=== PATIENT | male | born 1985 | race Asian ===

== ENCOUNTER 2025-01-20 04:49 | Emergency (ER) | payer MEDICAID, SELFPAY ==
--- NOTE | 2025-01-20 04:54 | EDNOTE_ITS ---
ED Medical Clearance RME/HPI General Stated complaint: MEDICAL CLEARANCE Time Seen by Provider: 01/20/25 05:06 Arrival date/time: 01/20/25 04:49 RME / HPI RME / HPI Narrative: Dr. Izaguirre?s Main ED Evaluation: 39yo male BIB [facility] presents to the ED for a medical clearance. Per [facility], patient was brought in due to his HR being too high. Patient denies any headache, chest pain, shortness of breath, dizziness, lightheadedness, N/V or any other associated symptoms. Patient is not on any medications. Denies any tobacco, alcohol or illicit drug use. NKA. Related Information Allergies Allergy/AdvReac Type Severity Reaction Status Date / Time No Known Allergies Allergy Mild Uncoded 08/05/09 20:49 Review of Systems Review of Systems Systems Reviewed: All systems reviewed, normal except as documented Past Medical History Social History SMOKING STATUS: Current some day smoker ED Exam Narrative Physical exam: GEN. APPEARANCE: The patient is alert awake oriented X-3 in no distress, lying down comfortably, does not look ill/toxic. Patient has good eye contact. Patient is cooperative. VITALS: All vitals were reviewed and the pulse ox is 99% on room air which is normal according to my interpretation. HEENT: Normocephalic, atraumatic. Pupils are equal and reactive. Oral mucosa is moist. Patent Nares NECK: Supple, nontender, no thyromegaly, no meningismus, no JVD CHEST: Symmetrical, atraumatic, and with equal expansion , Nontender on palpation no deformity and no crepitus. CARDIOVASCULAR: Tachycardic; no murmur or gallop rub or extra beats. LUNGS: Clear to auscultation bilaterally with symmetrical chest rise. No laboring tachypnea or wheezing. No intercostal subcostal retraction. No rales and no rhonchi. ABDOMEN: Soft, flat, nontender to palpation, no guarding or rebound tenderness. There are no abnormal masses palpated. Active and normal bowel sounds. EXTREMITIES: Nontender. No edema. No cyanosis. Patient is handcuffed. SKIN: Warm and dry, no jaundice or rashes noted. NEURO: Patient is PERES x 4, Cranial nerves II through XII grossly intact. There is no focal neurologic deficits noted. GCS is 15, PNS and [employer] appear grossly intact. PSYCHIATRIC: Patient is in anxious mood and affect Course Quality Measures none Orders Category Date Time Status EKG (ED ONLY) *Do not use* NOW Care 01/20/25 05:06 Active EKG (ED Only) Stat Exams 01/20/25 05:06 Ordered Ringers Lactated 1000 ml [Lactated Ringers] 1,000 ml Med 01/20/25 05:06 Active IV 999 mls/hr Vital Signs Vital signs: Vital Signs Temperature 98.6 F 01/20/25 04:59 Pulse Rate 134 H 01/20/25 04:59 Respiratory Rate 18 01/20/25 04:59 Blood Pressure 151/112 H 01/20/25 04:59 Pulse Oximetry (%) 99 01/20/25 04:59 Oxygen Delivery Method Room Air 01/20/25 04:59 Medical Clearance MDM Narrative MDM Narrative:: Scribe Attestation: 01/20/25 - Idania Adkins am scribing for and in the presence of Dr. Izaguirre. Patient was offered IVF and EKG, but patient declined. Patient is refusing to receive any treatment and is signing out AMA. Patient data External records reviewed:: [facility] previous records (Per chart review, patient has no previous ED visits or admissions to this facility.) Clinical information provided by:: patient and law enforcement Social determinants that could affect healthcare access:: none Patient has the following chronic illnesses:: none How is presenting disease/condition affected by chronic disease/condition?: no chronic disease Evaluation data The following diagnostics were reviewed and interpreted by me:: other (specify) (none) Lab and/or radiology exams considered but not ordered:: none Interpretation Summary: none Medications / Prescriptions Medications or Prescriptions considered but not ordered:: none Medication administrations:: Medication Administration History Lactated Ringer's (Lactated Ringers) 1,000 mls @ 999 mls/hr IV .[id number] ONE Stop: 01/20/25 06:06 Patient refused. Consultations Consultation(s) initiated? (list below): No Diagnosis Medical Clearance Differential Diagnosis: other (ACS, dehydration, arrhythmia, anxiety, acute stress reaction) Most likely diagnosis given after review of the tests above:: AMA Admission Indicated Admission indicated?: not indicated Admission Request Was there a request for admission?: No Disposition Plan Disposition Plan: other (specify) (Patient signed out AMA.) Discharge Plan Plan Patient Disposition: Left Against Medical Advice Discharge Disposition comment: Patient is currently in custody, is tachycardic. Patient has capacity to make his own decisions, is GCS 15, alert and oriented understands risk benefits of declining medical care understands that we have not ruled out acute life-threatening pathology. Patient would like to decline evaluation and care. Is signing out AGAINST MEDICAL ADVICE. Patient is in custody Problem List Clinical Impression: Tachycardia Patient/Caregiver Discharge Instructions Discharge Activity: activity as tolerated Additional Instructions: Please follow-up with the provider and discuss your symptoms. We recommend that you continue medical care and evaluation. Print Language: Pashto
[2025-01-20 04:59] VITALS: BP 151/112; PULSE 134; RESP 18; TEMP 37; O2SAT 99
== END 2025-01-20 05:21 | disposition left against medical advice (07) ==
LOC: SERX 06:07
PROVIDERS: Emergency Provider Emergency Medicine
DX: Z02.89 Encounter for other administrative examinations (principal); R00.0 Tachycardia, unspecified; Z53.29 Procedure and treatment not carried out because of patient's decision for other reasons
CPT/HCPCS: 99281